=== PATIENT | male | born 1985 | race Caucasian/White ===

== ENCOUNTER 2017-03-28 09:00 | Inpatient (IN) ==
[2017-03-28] MEDS ORDERED: oxyCODONE/ACETAMINOPHEN 5-325 MG TABLET PO PRN (09:34)
[2017-03-28] MEDS ORDERED: ONDANSETRON 4 MG/2 ML VIAL IV PRN (09:37)
[2017-03-28] MEDS: SODIUM CHLORIDE 0.9% 1,000 ML IV SCH ×2 (12:00→17:48)
[2017-03-28 12:23] LABS: Basophils # 0.1 10*3/uL (0.0-0.2); Basophils % 0.9 % (0.0-0.8); Eosinophils # 0.3 10*3/uL (0.0-0.87); Eosinophils % 2.8 % (0.00-10.9); Hematocrit 50.4 VOL% (42.0-52.0); Hemoglobin 17.7 GM/DL (14.0-18.0); Immature Granulocytes % 0.3 %; Immature Granulocytes Absolute 0.03 #; Lymphocytes # 1.9 10*3/uL (1.4-4.0); Lymphocytes % 20.2 % (21.2-54.2); Mean Corpuscular HGB Conc 35.1 GM/DL (32-36); Mean Corpuscular Hemoglobin 31 PG (27-34); Mean Corpuscular Volume 87.5 FL (87-102); Mean Platelet Volume 9.8 FL (9.6-12.0); Monocytes # 0.5 10*3/uL (0.11-0.8); Monocytes % 5.4 % (1.7-12.7); Neutrophils # 6.6 10*3/uL (1.4-7.4); Neutrophils % 70.4 % (38.7-73.9); Platelet Count 294 T/CUMM (130-400); Red Blood Count 5.76 MC/CUMM (3.8-5.5); Red Cell Distribution Width 12.4 % (9.3-17.3); White Blood Count 9.3 T/CUMM (4-12)
[2017-03-28] MEDS: cefTRIAXone 1,000 MG in SYRINGE 1 EACH IV SCH (12:33)
[2017-03-28] MEDS: ALPRAZolam 0.5 MG TABLET PO SCH ×2 (12:33→20:58)
[2017-03-28] MEDS: GABAPENTIN 300 MG CAPSULE PO SCH ×2 (12:35→20:57)
[2017-03-28] MEDS: NICOTINE 21 MG/24 HR PATCH TRANSDERM SCH (12:48)
[2017-03-28 12:50] LABS: Calcium 9.6 MG/DL (8.5-10.1); Osmolality,Calculated 274.5 MOS/KG (273-304); Potassium 4.3 MMOL/L (3.5-5.1)
[2017-03-28] MEDS: oxyCODONE/ACETAMINOPHEN 5-325 MG TABLET PO PRN ×2 (14:42→20:58)
[2017-03-28] MEDS: MORPHINE 2 MG/1 ML SYRINGE IV PRN ×2 (17:37→23:38)
[2017-03-28] MEDS ORDERED: NON-FORMULARY MEDICATION (Dextroamphetamine/Amphetamine [Adderall 20 Mg Tablet] 20 MG) PO SCH (21:00)
[2017-03-29] MEDS: MORPHINE 2 MG/1 ML SYRINGE IV PRN ×3 (02:55→10:49)
[2017-03-29] MEDS: SODIUM CHLORIDE 0.9% 1,000 ML IV SCH ×2 (02:56→10:56)
[2017-03-29] MEDS: oxyCODONE/ACETAMINOPHEN 5-325 MG TABLET PO PRN ×2 (04:42→16:20)
[2017-03-29] MEDS: GABAPENTIN 300 MG CAPSULE PO SCH (08:57)
[2017-03-29] MEDS: NICOTINE 21 MG/24 HR PATCH TRANSDERM SCH (08:57)
[2017-03-29] MEDS: ALPRAZolam 0.5 MG TABLET PO SCH (08:57)
[2017-03-29] MEDS: cefTRIAXone 1,000 MG in SYRINGE 1 EACH IV SCH (11:00)
[2017-03-29] MEDS ORDERED: ALBUTEROL/IPRATROPIUM 3 ML NEB RESP TX ONE (13:19)
[2017-03-29] MEDS ORDERED: PROPOFOL 200 MG/20 ML VIAL IV ONE (15:51)
[2017-03-29] MEDS ORDERED: SEVOFLURANE 1 UNIT/15 MINUTE INH ONE (15:52)
[2017-03-29] MEDS ORDERED: MIDAZOLAM 2 MG/2 ML VIAL ONE (15:52)
[2017-03-29] MEDS ORDERED: ACETAMINOPHEN 1,000 MG/100 ML VIAL IV ONE (15:52)
[2017-03-29] MEDS ORDERED: ONDANSETRON 4 MG/2 ML VIAL ONE (15:52)
[2017-03-29] MEDS ORDERED: fentaNYL 100 MCG/2 ML VIAL ONE (15:52)
[2017-03-29 19:43] VITALS: BP 127/90
== END 2017-03-29 18:30 | disposition home or self-care (01) | DRG 669 ==
LOC: N.ADMINP 09:18 → N.5E 11:35
PROVIDERS: ADMIT Surgery; ATTEND Surgery

== ENCOUNTER 2017-04-26 23:36 | Observation (INO) ==
[2017-04-26] MEDS ORDERED: NALOXONE 0.4 MG/ML VIAL IV STA (23:43)
[2017-04-26] MEDS ORDERED: NALOXONE 0.4 MG/ML VIAL ONE (23:43)
[2017-04-27 01:33] LABS: Basophils # 0.1 10*3/uL (0.0-0.2); Basophils % 0.5 % (0.0-0.8); Eosinophils # 0.1 10*3/uL (0.0-0.87); Eosinophils % 1.2 % (0.00-10.9); Hemoglobin 15.9 GM/DL (14.0-18.0); Immature Granulocytes % 0.3 %; Immature Granulocytes Absolute 0.03 #; Lymphocytes # 1.4 10*3/uL (1.4-4.0); Lymphocytes % 15.2 % (21.2-54.2); Mean Corpuscular HGB Conc 35.3 GM/DL (32-36); Mean Corpuscular Hemoglobin 31 PG (27-34); Mean Corpuscular Volume 87.9 FL (87-102); Mean Platelet Volume 10.3 FL (9.6-12.0); Monocytes # 0.4 10*3/uL (0.11-0.8); Monocytes % 4.7 % (1.7-12.7); Neutrophils # 7.4 10*3/uL (1.4-7.4); Neutrophils % 78.1 % (38.7-73.9); Platelet Count 211 T/CUMM (130-400); Red Blood Count 5.12 MC/CUMM (3.8-5.5); Red Cell Distribution Width 12.3 % (9.3-17.3); White Blood Count 9.5 T/CUMM (4-12)
[2017-04-27 01:42] LABS: Apearance,Urine CLEAR (Clear); Bilirubin,Urine Negative (Negative); Blood, Urine Small mg/dL (Negative); Glucose,Urine (UA) Negative (Negative); Ketones,Urine Negative (Negative); Nitrite,Urine Negative (Negative); Protein,Urine Negative; Urine Color Straw (Yellow); Urine Specific Gravity 1.003 (1.001-1.035); Urine Urobilinogen < 2.0 EU/DL (0.2-1.0); WBC,Urine 1 /HPF (0-6)
[2017-04-27 01:45] LABS: INR 1.1; PT Patient Result 11.2 SECS
[2017-04-27 01:55] LABS: Acetaminophen < 2.0 UG/ML (10-30); Alanine Aminotransferase 19 U/L (16-61); Albumin 4.1 G/DL (3.4-5.0); Alkaline Phosphatase 66 U/L (45-117); Aspartate Amino Transferase 14 U/L (0-37); Blood Urea Nitrogen 8 MG/DL (7-18); Calcium 8.9 MG/DL (8.5-10.1); Glucose 110 MG/DL (74-106); Osmolality,Calculated 279.3 MOS/KG (273-304); Salicylate 2.8 MG/DL (2.8-20); Sodium 141 MMOL/L (136-145)
[2017-04-27 02:57] LABS: Barbiturates Screen,Urine Negative (Negative); Benzodiazepines Screen,Urine Negative (Negative); Cannabinoid Screen,Urine Positive (Negative); Opiate Screen,Urine Negative (Negative); Phencyclidine Screen,Urine Negative (Negative)
[2017-04-27] MEDS ORDERED: SODIUM CHLORIDE 0.9% 2,000 ML IV STA (03:13)
[2017-04-27] MEDS ORDERED: SODIUM CHLORIDE 0.9% 1,000 ML IV SCH (05:52)
[2017-04-27] MEDS ORDERED: NICOTINE 21 MG/24 HR PATCH TRANSDERM PRN (05:52)
[2017-04-27] MEDS ORDERED: ONDANSETRON 4 MG/2 ML VIAL IV PRN (05:52)
[2017-04-27] MEDS ORDERED: oxyCODONE/ACETAMINOPHEN 5-325 MG TABLET PO PRN (07:38)
[2017-04-27] MEDS ORDERED: PANTOPRAZOLE 40 MG TABLET PO SCH (09:00)
[2017-04-27] MEDS ORDERED: DOCUSATE SODIUM 100 MG CAPSULE PO SCH (09:00)
[2017-04-27] MEDS ORDERED: ENOXAPARIN 40 MG/0.4 ML SYRINGE SUBCUT SCH (09:00)
[2017-04-27 10:07] VITALS: BP 121/92
== END 2017-04-27 09:40 | disposition home or self-care (01) ==
LOC: EDBD → EDUNIT# → N.ED 23:36 → SUATTDRO 04-27 02:48 → N.EDINP 04-27 02:48 → INTOOBSV 04-27 02:48 → N.ICU 04-27 05:48
PROVIDERS: ADMIT Internal Medicine; ATTEND Internal Medicine